=== PATIENT | male | born 1990 | race Two or more races ===

== ENCOUNTER 2021-05-01 09:02 | Emergency (ER) | payer OTHER ==
[~2021-05-01] VITALS: Ht 188 cm; Wt 111.1 kg
== END 2021-05-01 11:43 | disposition home or self-care (01) ==
LOC: ER 09:02
DX: S49.91XA Unspecified injury of right shoulder and upper arm, initial encounter (principal); X58.XXXA Exposure to other specified factors, initial encounter; Y93.89 Activity, other specified; Y92.89 Other specified places as the place of occurrence of the external cause; Y99.8 Other external cause status; M25.511 Pain in right shoulder